=== PATIENT | male | born 1955 | race Caucasian/White ===

== ENCOUNTER 2017-04-12 06:45 | Day surgery (SDC) | payer OTHER, BC ==
[2017-04-11 09:05] VITALS: BMI 28.3
[2017-04-12] MEDS ORDERED: BUPIVACAINE HCL/PF 0.5% (5MG/ML) 10 ML VIAL ONE ×2 (09:07→09:16)
[2017-04-12] MEDS ORDERED: ceFAZolin SODIUM 1 GM VIAL IVPB ONE (09:20)
--- NOTE | 2017-04-12 09:45 | HP ---
[facility]ellite [facility] - Chief Complaint Chief Complaint: left hand and elbow pain - Past Medical History Allergies/Adverse Reactions: Allergies Allergy/AdvReac Type Severity Reaction Status Date / Time No Known Drug Allergies Allergy Verified 04/11/17 08:53 - Current Medications Current Medications: Home Medications Medication Instructions Recorded Esomeprazole Mag Trihydrate 40 mg PO DAILY 06/02/15 [Nexium] Escitalopram Oxalate [Lexapro -] 20 mg PO DAILY 04/11/17 Lorazepam 1 mg PO DAILY 04/11/17 Meloxicam 15 mg PO DAILY 04/11/17 Hydrocodone/Acetaminophen [[place] 1 each PO Q6H PRN #20 tablet MDD 4 04/12/17 5-325 Tablet] Satellite Physical Exam - Physical Examination Vital Signs: Vital Signs Period Temp Pulse Resp BP Sys/Preciado Pulse Ox Last 24 Hr 98.2 F 66 20 146/90 99 General Appearance: Well Nourished, Well Developed, Alert & Oriented x3 ENT: Clear Lung: Normal air movement Heart: Regular rate & rhythm Extremities: Other (left hand- + phalens, + tinels Left elbow- + tinels EMG + cts, cubital tunnel syndrome) Neurological: Intact, Alert, Oriented Satellite Impression/Plan - Impression/Plan Impression: left cts and cubital tunnel syndrome Operative Procedure: left ctr, ulna nerve transposition Date to be Performed: 04/12/17
--- NOTE | 2017-04-12 10:43 | OP ---
Operative Note - Note: Operative Date: 04/12/17 ([facility]) Pre-Operative Diagnosis: left cts, cubital tunnel syndrome Operation: left ctr, tenosynovectomy, left elbow cubital tunnel syndrome Post-Operative Diagnosis: Same as Pre-op Surgeon: Sheldon Schroeder Slitter Creaser Slotter Operator: Jin Harden Anesthesiologist/HARDBOARD PANEL PRINTER: Maycol De Souza Anesthesia: General, Local Specimens Removed: tenosynovium Estimated Blood Loss (mls): 0 (tourniquet) Operative Report Dictated: Yes
[2017-04-12] MEDS ORDERED: ONDANSETRON 4 MG/2 ML VIAL IVPUSH PRN (10:50)
[2017-04-12] MEDS ORDERED: oxyCODONE HCL 5 MG TABLET PO PRN (10:50)
[2017-04-12] MEDS ORDERED: LACTATED RINGERS SOLUTION 1,000 ML IV SCH (11:00)
[2017-04-12 12:15] VITALS: TEMP 97.9
--- NOTE | 2017-04-12 14:16 | SPEC ---
DATE OF OPERATION: 04/12/2017 PREOPERATIVE DIAGNOSIS: Left cubital tunnel syndrome and carpal tunnel syndrome. PROCEDURE: Left subcutaneous ulnar nerve transposition, carpal tunnel release, and tenosynovectomy. SURGEON: Sheldon Scrhoeder MD FURNITURE POLISHER: ARCHIE Chung ANESTHESIOLOGIST: Maycol De Souza MD ANESTHESIA: LMA anesthesia with local injection of 15 mL of 0.5% Marcaine and 1% lidocaine mixed. DRAINS: None. COMPLICATIONS: None. SPECIMENS: Tenosynovium, left wrist. BLOOD LOSS: None. BLOOD GIVEN: None. FLUID REPLACEMENT: 700 mL. INDICATIONS: This patient is a 61-year-old male with preoperative diagnosis of severe left cubital tunnel syndrome and carpal tunnel syndrome. After understanding the potential risks, complications, alternatives, and benefits of surgery versus nonsurgical treatment, the patient elected to undergo this procedure. He understands he may not get complete relief of his symptoms including the numbness. DESCRIPTION OF PROCEDURE: The patient was brought to the operating room, peripheral IV placed and intravenous sedation was given. One gram of intravenous Ancef was given. MAC anesthesia was induced. A tourniquet was applied to the left upper arm and the left upper extremity was prepped and draped in sterile fashion. The entire case was done under 3.8 loupe magnification. A marking pen was utilized to fabian out a longitudinal incision in an already existing skin crease. Twenty mL of 0.5% Marcaine mixed with 1% Lidocaine was injected in and around the surgical incision. The left upper extremity was elevated, exsanguinated with an Esmarch bandage and the tourniquet inflated to 250 mmHg. A No. 15 scalpel blade was utilized to cut down through the skin. Subcutaneous hemostasis was achieved with the bipolar cautery. Dissection was done through the superficial palmar fascia. Self-retaining retractors were placed into the wound. Under direct visualization, the transverse carpal ligament was transected with a No. 15 scalpel blade, exposing the median nerve and the contents of the carpal tunnel. The distal and proximal extents of the release were completed with a Littler scissor and checked with irrigation and my small finger. They were seen to be complete. Limited dissection was done on the radial side of the median nerve and more extensive dissection was done on the ulnar side of the median nerve. The patients nerve was seen to be quite compressed by epineurium and therefore a limited epineurotomy was performed. A Ragnell retractor was used to gently retract the median nerve in a radial direction. The patient had a lot of tenosynovitis and therefore a tenosynovectomy was performed off all 9 flexor tendons. This was passed off the field as tenosynovium left wrist. The floor of the carpal tunnel was checked. There were no abnormal masses or ganglion cysts. The area was copiously irrigated and washed out and closure begun. Undyed 4-0 Vicryl was used to close the deep dermal layer. Final skin reapproximation was done with horizontal mattress 4-0 nylon sutures. The area was then washed and dried, covered with Xeroform, 4x4s, fluffs between the fingers, Webril and a 4-inch plaster roll was utilized to make a volar splint, which was then wrapped with Shaniqua and Coban. Our attention turned to the elbow. A curvilinear incision was made with a No. 15 scalpel blade after injection of 0.5% Marcaine and 1% Lidocaine mixed in and around the surgical incision. Subcutaneous hemostasis was achieved with a bipolar cautery. Dissection done with scissors down to the medial epicondyle. Self-retaining retractors were placed into the wound. Careful dissection was done distally, and the ulna was identified. It was then released distally, and then, a [place] drain placed around it for identification and retraction. Next, using the bipolar cautery to cauterize small crossing vessels, I was able to find the roof of the cubital tunnel. This was released, and then, moving the Nilson drain more proximally, Osbornes ligament, between the 2 heads of the FCU, this was released, as well. I was able to feel the release with my finger distally and proximally. There were no points of compression except over the medial intramuscular septum, which was incised to decompress it. I was unable to transpose the ulnar nerve to its new position without any points of compression distally or proximally. The area was irrigated and washed out. Next, using 0 Vicryl suture, I put the ulnar nerve in its new position and tacked down the fat layer of the skin flap to the medial epicondyle holding the ulnar nerve in place. Then, sewed together the fat. The 4-0 undyed Vicryl was used to close the deep dermal layer. Final skin reapproximation was done with a running subcuticular 3-0 Biosyn stitch. The area was then washed and dried, covered with Steri-Strips, Xeroform on the carpal tunnel incision, fluffs between fingers, 4x4s throughout. The entire arm was covered with Webril. A 5-inch Ortho-Glass posterior splint was applied, wrapped with Shaniqua and two Tyler bandages. The tourniquet was taken down after a total tourniquet time of about 1 hour. There were no complications during the case. The patient tolerated the procedure well and was brought to the ambulatory recovery room in stable condition. Rita [id number]
[2017-04-12 14:39] VITALS: BP 140/80; PULSE 70
--- NOTE | 2017-04-19 17:12 | PATH ---
Surgical Pathology Report Patient Name: JAH ROSALES [facility]. Rec. #: [id number] /Age/Gender: 1955 (Age: 61) / M Account: [id number] Location: [facility] SURGICAL Taken: 04/12/2017 Received: 04/12/2017 Reported: 04/19/2017 Physicians: Sheldon Schroeder M.D. Specimen(s) Received LEFT TENOSYNOVIUM Clinical History Carpal tunnel syndrome Final Diagnosis TENOSYNOVIUM, LEFT, RELEASE: TENOSYNOVIUM. Electronically Signed Claudia Neri M.D. Gross Description Received in formalin labeled "left tenosynovium," is a 1.7 x 1.3 x 0.3 cm aggregate of mcclellan-yellow, irregular portions of soft tissue, consistent with tenosynovium. The specimen is entirely submitted in one cassette. /04/12/201704/12/2017
== END 2017-04-12 14:30 | disposition home or self-care (01) ==
LOC: JASU-SURG 06:45
PROVIDERS: ATTEND Orthopaedic Surgery
PROC: 01N50ZZ Release Median Nerve, Open Approach (ICD-10-PCS; principal; 2017-04-12 09:00)
PROC: 01X40Z4 Transfer Ulnar Nerve to Ulnar Nerve, Open Approach (ICD-10-PCS; 2017-04-12 09:00)
DX: G56.02 Carpal tunnel syndrome, left upper limb (principal); G56.22 Lesion of ulnar nerve, left upper limb
CPT/HCPCS: 88304-TC; 94760